=== PATIENT | female | born 1965 | race Caucasian/White ===

== ENCOUNTER → 2022-12-31 | Outpatient (CLI) | payer OTHER | END | disposition home or self-care (01) | LOC: US 12-28 12:30 → CT 00:33 | PROVIDERS: ATTEND Podiatrist Foot & Ankle Surgery | DX: S92.352K Displaced fracture of fifth metatarsal bone, left foot, subsequent encounter for fracture with nonunion (principal); M19.072 Primary osteoarthritis, left ankle and foot; X58.XXXD Exposure to other specified factors, subsequent encounter ==